=== PATIENT | female | born 1995 | race Caucasian/White ===

== ENCOUNTER 2016-07-29 12:59 | Emergency (ER) | payer OTHER ==
[2016-07-29] MEDS ORDERED: IBUPROFEN 600 MG TAB PO ONE (13:21)
[2016-07-29] MEDS ORDERED: IBUPROFEN 200 MG TAB PO ONE ×2 (13:27→13:29)
--- NOTE | 2016-07-29 13:33 | EDPHY ---
H & P Stated Complaint: kicked by horse rt medial aspect ankle, pain with wt bearing Time Seen by Provider: 07/29/16 13:21 HPI/ROS: Chief Complaint: Ankle pain HPI: 20-year-old female was kicked in the medial aspect of her right ankle by a horse approximately 90 minutes ago. Patient has had significant pain with weight-bearing but is able to weight bear. No prior injuries. Did not fall. Did not hit her head. Is currently without any other complaint. ROS: 10 point Review of Systems is negative except as noted in the HPI. PMH: None Medications: None Allergies: Latex Social History: [No] smoking, [no] alcohol, [ no recreational drug use] Family History: [non-contributory] Physical Exam: General: Awake, alert, no acute distress Right lower extremity: Right hip: Full range of motion without pain, nontender Right knee: No proximal fibular tenderness. No tibial tenderness. Full range of motion without pain. Able flex past 90 Right ankle: She has got significant ecchymosis over her medial malleolus with significant tenderness. No lateral malleolar tenderness but there is tenderness in the inferior ligaments of the lateral malleolus. No calcaneal tenderness. No navicular tenderness. No midfoot tenderness. 2+ DP pulses. Cap refills less than 3 seconds. Skin: No rash - Personal History LMP (Females 10-55): Extended Cycle BCP/Inj Current Tetanus Diphtheria and Acellular Pertussis (TDAP): Yes Tetanus Vaccine Date: 2008 - Medical/Surgical History Hx Asthma: No Hx Chronic Respiratory Disease: No Hx Diabetes: No Hx Cardiac Disease: No Hx Renal Disease: No Hx Cirrhosis: No Hx Alcoholism: No Hx HIV/AIDS: No Hx Splenectomy or Spleen Trauma: No Other PMH: Med hx-anxiety. SUrg-bone spur-left heel. heel spur on right foot. - Social History Smoking Status: Never smoked Constitutional: Initial Vital Signs Temperature (C) 37.2 C 07/29/16 13:14 Heart Rate 71 07/29/16 13:14 Respiratory Rate 16 07/29/16 13:14 Blood Pressure 136/97 H 07/29/16 13:14 O2 Sat (%) 94 07/29/16 13:14 O2 Delivery Mode Room Air Allergies/Adverse Reactions: latex Allergy (Intermediate, Verified 07/29/16 13:13) Home Medications: Medication Instructions Recorded Etonogestrel [Nexplanon] 07/29/16 Lexapro 07/29/16 Medical Decision Making - Diagnostics Imaging: I viewed and interpreted images myself ED Course/Re-evaluation: Patient placed in a Velcro stirrup splint for support. She does not want crutches. Will discharge with follow-up with primary care physician in several days. - Data Points Medications Given: Discontinued Medications Ibuprofen (Motrin) 600 mg PO EDNOW ONE Stop: 07/29/16 13:22 Last Admin: 07/29/16 13:31 Dose: 600 mg Ibuprofen (Motrin) 200 mg PO EDNOW ONE Stop: 07/29/16 13:30 Last Admin: 07/29/16 13:30 Dose: 200 mg Departure - Departure Disposition: Home, Routine, Self-Care Clinical Impression: Ankle contusion, Ankle sprain Condition: Good Instructions: Ankle Sprain (ED), Ankle Stirrup Splint (ED) Additional Instructions: Follow up with primary care in 3-4 days if symptoms are not improving. You may alternate ibuprofen with acetaminophen as needed for pain. Apply ice for 15 minutes of every hour while awake for the next 1-2 days. Keep the extremity elevated. Referrals: Deep Irving MD [[facility] Primary Care Provider] - As per Instructions
[2016-07-29 14:42] VITALS: BP 122/62; PULSE 78; RESP 18; TEMP 98; O2SAT 96
== END 2016-07-29 14:43 | disposition home or self-care (01) ==
LOC: CED 12:59
DX: S93.401A Sprain of unspecified ligament of right ankle, initial encounter (principal); S90.01XA Contusion of right ankle, initial encounter; Z91.040 Latex allergy status; W55.12XA Struck by horse, initial encounter
CPT/HCPCS: 73610-PO; L4350